=== PATIENT | female | born 1960 | race Caucasian/White ===

== ENCOUNTER 2016-09-23 13:15 | Emergency (ER) | payer MEDICARE ==
[~2016-09-23] VITALS: Ht 157.5 cm; Wt 56.8 kg
[~2016-09-23 13:15] MED LIST: BACL10TA PO; HYDR1TAB69 PO
[2016-09-23 13:18] VITALS: BP 114/73; PULSE 91; RESP 18; O2SAT 100
--- NOTE | 2016-09-23 13:44 | ED.REPORT ---
HPI-General Illness Date of Service Sep 23, 2016 ED Provider: Geo Martinez MD The patient is a 56 year old female w/ a hx of who presents to the ED c/o left sided throat pain for the past month. Associated symptoms include dizziness, subjective fever, body aches, fatigue, wheezing, coughing, difficulty swallowing , and nausea. She states that her throat feels swollen. Pt has been able to eat and drink normally and denies vomiting. She is on hydrocodone and baclofen for back pain. Nursing Notes Stated Complaint: FLU LIKE SYMPTOMS Chief Complaint: General Complaint Nursing Notes Reviewed: Yes (Pursuit Management not reconciled) Allergies: Coded Allergies: codeine (Verified Allergy, Unknown, HYPERVENTILATE, 09/23/16) tramadol (Verified Allergy, Unknown, HYPERACTIVE, 09/23/16) Scheduled Baclofen (Baclofen) 10 Mg Tablet 10 MG PO BID Hydrocodone Bit/Acetaminophen (Hydrocodon-Acetaminophen 5-500) 1 Each Tablet 1 EACH PO Q4 General Time Seen by MD: 13:40 Chief Complaint Sore throat Hx Obtained From: Patient Arrived By: Walk-in Sudden in Onset?: Yes Onset Occurred: More than a week ago... (1 month) Symptom Duration: Since onset Severity: Current: No pain currently Recent Healthcare: No recent doctor visit, No recent hospitalization Similar Sx Previous: No Past Medical History Past Medical History History of a round lesion L3, a probable hemangioma History of chronic back pain History of diverticulosis Past Surgical History Hysterectomy History tubal ligation Neck fusion. Smoking History Unknown if Ever Smoker Social History Alcohol Use: Denies alcohol use Drug Use: Denies drug use Review of Systems Full Review of Systems Constitutional: Reports: Fatigue, Fever (subjective), Malaise Ears / Nose / Throat: Reports: Throat pain Respiratory: Reports: Non-productive cough, Wheezing, Denies: Shortness of breath GI: Reports: Nausea, Denies: Vomiting Neurologic: Reports: Dizziness Complete sys rev & neg: except as marked. Physical Exam Vital Signs Vital Signs Date Time Temp Pulse Resp B/P Pulse Ox O2 Delivery O2 Flow Rate FiO2 09/23/16 16:00 37.0 66 17 117/72 98 Room Air 09/23/16 13:18 37.1 91 18 114/73 100 Room Air Initial VS: Reviewed, Vital signs normal General/Constitutional: Awake, Cooperative fatigued Head / Eyes: Atraumatic, Normocephalic, PERRL ENT: Mucous membranes moist, Pharynx NL voice is normal questionable left sided lymph node not apparent clinically that it is pathological small 2mm ulceration on left mucosa Respiratory / Chest: Atraumatic, Breath sounds NL, Breath sounds = bilat Cardiovascular: Heart rate NL, Regular rhythm, Heart sounds NL Abdomen: Atraumatic, Soft, Non-tender Upper Extremities Upper Extremity / MS: Atraumatic, Full range of motion, No deformity Wrist / Hand: Atraumatic, Full range of motion, No deformity Lower Extremity / Pelvis / MS: Atraumatic, Full range of motion, No deformity Ankle / Foot: Atraumatic, Full range of motion, No deformity Skin: Atraumatic, Color NL, No rash Neurologic: Oriented X3, Speech NL, No motor deficits Interpretation & Diagnostics Interpretation & Diagnostics: SOFT TISSUE NECK CT IMPRESSION: No imaging explanation for left neck swelling and pain. Dictated by: Aime Licona M.D. on 09/23/2016 at 16:54 Approved by: Aime Licona M.D. on 09/23/2016 at 16:58 Lab Results Interpretation Result Diagram: 09/23/16 1504 09/23/16 1504 Test 09/23/16 15:04 09/23/16 15:54 09/23/16 15:58 09/23/16 17:35 White Blood Count 7.7th/mm3 (3.8-10.1) Red Blood Count 5.00mil/mm3 (3.90-5.20) Hemoglobin 15.6g/dL (12.0-15.6) Hematocrit 45.1% (35.0-46.0) Mean Corpuscular Volume 90.2fL (81-100) Mean Corpuscular Hemoglobin 31.2pg (27.0-35.0) Mean Corpuscular Hemoglobin Concent 34.6% (32.0-37.0) Red Cell Distribution Width 13.0% (12.3-15.4) Platelet Count 278bil/L (150-400) Neutrophils (%) (Auto) 56.8% (40-74) Lymphocytes (%) (Auto) 30.3% (14-46) Monocytes (%) (Auto) 10.6% (4-12) Eosinophils (%) (Auto) 1.2% (0-5) Basophils (%) (Auto) 0.8% (0-3) Erythrocyte Sedimentation Rate 1mm/hr (0-40) Sodium Level 144mEq/L (134-144) Potassium Level 3.8mEq/L (3.5-5.2) Chloride Level 102mEq/L (97-108) Carbon Dioxide Level 26mmol/L (18-29) Blood Urea Nitrogen 9mg/dL (6-24) Creatinine 0.63mg/dL (0.57-1.00) Estimat Glomerular Filtration Rate 141mL/min (>59) Glucose Level 94mg/dL (60-99) Calcium Level 10.1mg/dL (8.5-10.1) Total Bilirubin 0.4mg/dL (0.0-1.2) Aspartate Amino Transf (AST/SGOT) 16U/L (0-50) Alanine Aminotransferase (ALT/SGPT) 13U/L (0-32) Alkaline Phosphatase 78U/L (25-150) Total Protein 7.5g/dL (6.4-8.4) Albumin 4.9g/dL (3.4-5.0) Thyroid Stimulating Hormone (TSH) 0.371uIU/mL (0.450-4.500) Monoscreen Negative (Negative) Hold Schafer Top Tube Received (Received) Hold Urine Received (Received) Urine Color Straw (YELLOW) Urine Appearance Clear (CLEAR,HAZY) Urine pH 7.0 (5.0-8.0) Urine Specific [place] 1.010 (1.003-1.035) Urine Protein Negativemg/dL (NEG,TRACE) Urine Glucose (UA) Negativemg/dL (NEGATIVE) Urine Ketones Negativemg/dL (NEGATIVE) Urine Occult Blood Negative (NEGATIVE) Urine Nitrite Negative (NEGATIVE) Urine Bilirubin Negative (NEGATIVE) Urine Urobilinogen Normalmg/dL (NORMAL) Urine Leukocyte Esterase Negative (NEGATIVE) Urine RBC 0-2/hpf (0-2) Urine WBC 0-5/hpf (0-5) Urine Epithelial Cells Few/hpf (NONE-MOD) Urine Crystals None seen (NONE SEEN) Urine Bacteria None/hpf (NONE-FEW) Urine Hyaline Casts None/lpf (NONE) Urine Granular Casts None seen (NONE SEEN) Urine Waxy Casts None seen (NONE SEEN) Urine Red Blood Cell Casts None seen (NONE SEEN) Urine White Blood Cell Casts None seen (NONE SEEN) Urine Mucus None seen (None Seen) Urine Trichomonas None seen (NONE SEEN) Urine Yeast None (NONE SEEN) Urinalysis Comment None Urine Culture Reflexed Not indicated Lab Results Interpretation: Strep negative [place] test negative CMP normal CBC normal TSH low, patient on replacement thyroid X-Ray Chest Interpretation Chest Xray Interpretation: IMPRESSION: No acute cardiopulmonary disease. Dictated by: Aime Licona M.D. on 09/23/2016 at 14:12 Approved by: Aime Licona M.D. on 09/23/2016 at 14:12 View: Portable Interpretation / Wet Read by: Interpret - Radiologist Re-Eval/Medical Decision Med Decision/Clinical Course This is a 56-year-old female who presents complaining she has a flu, or pneumonia, and a sense of left sided neck swelling and discomfort and worsening in recent weeks. She has not had an outbreak fever, but remains concerned. Had no difficulty swallowing. And no overt additional complaints. His normal vital signs, is afebrile. She does not appear toxic but is fatigued. However I do not appreciate any marked abdominal exam abnormalities. She complains of a sense of discomfort in the left neck, I do not appreciate visible or palpable edema or adenopathy. Her voice is normal and there is no evidence of airway compromise. She denies any dysphagia. Her lungs are clear but she is worried about pneumonia because she is a smoker. A workup was pursued-strep and mono test were negative. Blood work was normal. CT imaging of the soft tissues of the neck were obtained given the level patient's concern-but these were negative as well. A chest x-ray was obtained and was negative for infiltrate. I am not finding evidence of a dangerous etiology. The patient remains concerned, but there are no heart features or specific findings. In the differential means a viral syndrome and this was explained, she repeatedly states "I feel like I have the flu" this remains consistent certainly possible. I am not finding evidence of sepsis, bacterial infection, abscess, there no hands to suggest malignancy or alternate dangerous pathology. After discussing options given her sense of neck swelling-even despite the absence of clinical objective findings-single dose of dexamethasone was offered and accepted. Care is discussed, patient's reassured, routine return precautions discussed and the patient is discharged in stable condition. Source of Hx: Old records Time of Eval: 17:42 Re-Evaluation/Progress Note: Pt rechecked. Informed pt of negative strep test, negative chest x-ray, negative mono-test, and normal lab results. Plan for steroid and discharge. All questions addressed. Differential Diagnosis: Negative: Abdominal pain, Acute coronary syndrome, Drug dependence, Neutropenia, Pneumonia, Syncope, Tonsillitis, acute Counseled Regarding: Diagnosis, Lab results, Need for follow-up, When/why to return to ED Discharge & Departure Primary Impression: Viral syndrome Disposition: Home Discharge Condition All VS Reviewed: Yes Condition: Stable Referrals: Coral Darden MD (PCP) [employer] Attestation Portion of this note were transcribed by Chen Alcantara. I, Dr. Martinez, personally performed the history, physical exam, and medical decision-making: I reviewed and confirmed the accuracy for the information in the transcribed note. Signed by: jessica Cortez, 09/23/16 1700 copies to: Coral Darden MD, Matthew F MD Sep 23, 2016 13:44 Chen Alcantara Sep 23, 2016 13:52
--- NOTE | 2016-09-23 14:14 | DRSVH ---
PROCEDURE: X-RAY CHEST ONE VIEW, PORTABLE ([id number]) INDICATIONS: 56 year-old female with cough and fevers. TECHNIQUE: One view of the chest was acquired. COMPARISON: None. FINDINGS: Surgical changes and devices: Cervical spine fixation hardware is incompletely visualized. Lungs and pleura: No pleural effusions or pneumothorax. Lungs are clear. Mediastinum: Mediastinal contours appear normal. Heart size is normal. Bones and chest wall: No suspicious bony lesions. Overlying soft tissues appear unremarkable. IMPRESSION: No acute cardiopulmonary disease. Dictated by: Aime Licona M.D. on 09/23/2016 at 14:12 Approved by: Aime Licona M.D. on 09/23/2016 at 14:12
[2016-09-23 15:31] LABS: BASOPHILS % (AUTO) 0.8 % (0-3); EOSINOPHILS % (AUTO) 1.2 % (0-5); MONOCYTES % (AUTO) 10.6 % (4-12); Mean Corpuscular Hemoglobin 31.2 pg (27.0-35.0); Mean Corpuscular Volume 90.2 fL (81-100); NEUTROPHILS % (AUTO) 56.8 % (40-74); Platelet Count 278 bil/L (150-400)
[2016-09-23 15:46] LABS: ERYTHROCYTE SEDIMENTATION RATE 1 mm/hr (0-40)
[2016-09-23 16:00] VITALS: BP 117/72; PULSE 66; RESP 17; O2SAT 98
--- NOTE | 2016-09-23 17:01 | DRSVH ---
PROCEDURE: CT NECK SOFT TISSUES WITH CONTRAST ([id number]) INDICATIONS: 56 year-old female with left leg pain and swelling. TECHNIQUE: After the administration of intravenous contrast, 3.0 mm axial sections acquired from the sella to th e aortic arch. Additional oblique axial 3.0 mm sections acquired through the pharynx. 3 mm thick co olivia reformats were generated. For radiation dose reduction, the following was used: automated exp osure control. COMPARISON: None. FINDINGS: Skin marker denotes the site of clinical concern superficial to the left sternocleidomasto id muscle. Image quality: Excellent. Lymph nodes: No enlarged lymph nodes seen throughout the neck. Vessels: Visualized vasculature appears patent. Neck spaces: The oropharynx, nasopharynx, and pharynx demonstrate no mucosal lesions. The vocal cor ds, false vocal cords, pyriform sinuses, epiglottis, vallecula, and tongue base all appear normal. E xtramucosal spaces appear unremarkable. Glands: The parotid and submandibular glands appear normal. Thyroid gland is normal in size, with 6 mm hyperdense left thyroid nodule of doubtful clinical significance. Miscellaneous: Visualized brain and orbits appear normal. Lung apices appear clear. Superficial so ft tissues appear normal. Bones: No suspicious bony lesions. Patient is status post C5-C6 and C6-C7 discectomies with interbo dy fusion and anterior fixation. Visualized sinuses and mastoids appear unremarkable. IMPRESSION: No imaging explanation for left neck swelling and pain. Dictated by: Aime Licona M.D. on 09/23/2016 at 16:54 Approved by: Aime Licona M.D. on 09/23/2016 at 16:58
[2016-09-23] MEDS ORDERED: Dexamethasone 20 mg/2 mL Oral Solution PO ONE (17:45)
[2016-09-23 17:47] LABS: APPEARANCE,URINE CLEAR (CLEAR,HAZY); COLOR,URINE STRAW (YELLOW); OCCULT BLOOD,URINE NEGATIVE (NEGATIVE); UROBILINOGEN,URINE NORMAL (NORMAL)
[2016-09-23 18:24] VITALS: BP 113/76; PULSE 76; O2SAT 100
== END 2016-09-23 18:25 | disposition home or self-care (01) ==
LOC: SED 13:15
DX: B34.9 Viral infection, unspecified (principal); Z90.710 Acquired absence of both cervix and uterus; Z88.5 Allergy status to narcotic agent
CPT/HCPCS: 36415; 70491; 71010; 80053; 81000; 84443; 85025; 85651; 86308; 87880; 99284; Q9967